=== PATIENT | female | born 1980 | race African-American/Black ===

== ENCOUNTER 2017-04-01 00:48 | Emergency (ER) | payer OTHER ==
[~2017-04-01] VITALS: Ht 170.2 cm; Wt 56.7 kg
[~2017-04-01 00:48] MED LIST: ALBUTEROL SULF8.5 GM INH; ALPRAZOLAM0.25 MG ORAL; AZITHROMYCIN250 MG ORAL; METRONIDAZOLE500 MG ORAL; NKM; PROMETHAZINE-D118 ML ORAL
[2017-04-01] MEDS ORDERED: RISPERDAL2 MG ORAL (00:57)
[2017-04-01] MEDS ORDERED: LORazepam Inj 2mg/ml 1ml IM ONE (01:15)
[2017-04-01] MEDS ORDERED: AMITRIPTYLINE25 MG ORAL (01:30)
--- NOTE | 2017-04-01 01:30 | Emergency Room Report ---
History of Present Illness General Chief Complaint: Headache Source: Patient, Family Member Present Illness HPI Is a 36-year-old female with a history of schizophrenia. She slept [facility]. Said that they put her on Zyprexa. She could not sleep tonight. She came in complaining of headache and feeling anxious. No suicidal thought thought. Denies any other complaint. Allergies: Coded Allergies: No Known Allergies (Unverified , 01/16/15) Patient History Past Medical History: see triage record, old chart reviewed, psych hx Past Surgical History: other Pertinent Family History: none Social History: Denies: smoking Last Menstrual Period: 03/28/17 Now: No Immunizations: other Reviewed Nursing Documentation: PMH: Agreed, PSxH: Agreed Nursing Documentation-PMH Past Medical History: No History, Except For Review of Systems Eye: Denies: blurred vision, eye pain ENT: Denies: ear pain, nose congestion, throat swelling Respiratory: Denies: cough, shortness of breath Cardiovascular: Denies: chest pain, palpitations Gastrointestinal: Denies: abdominal pain, diarrhea, nausea, vomiting Musculoskeletal: Denies: back pain, joint pain Skin: Denies: rash Neurological: Denies: headache, numbness Endocrine: Denies: increased thirst, increased urine Hematologic/Lymphatic: Denies: easy bruising All Other Systems: negative except mentioned in HPI Physical Exam Vital Signs Date Time Temp Pulse Resp B/P Pulse Ox O2 Delivery O2 Flow Rate FiO2 04/01/17 00:53 98.1 98 16 131/83 99 Room Air vitals normal Sp02 EP Interpretation: reviewed, normal General Appearance: well appearing, no apparent distress, alert Head: normocephalic, atraumatic Eyes: bilateral eye EOMI, bilateral eye PERRL ENT: hearing grossly normal, normal pharynx Neck: full range of motion, supple, no meningismus Respiratory: chest non-tender, lungs clear, normal breath sounds Cardiovascular #1: regular rate, rhythm, no murmur Gastrointestinal: normal bowel sounds, non tender, no mass, no organomegaly, no bruit, non-distended Musculoskeletal: back normal, gait/station normal, normal range of motion Psychiatric: anxious - Also with flat affect Skin: warm/dry Medical Decision Making Diagnostic Impression: Primary Impression: Headache Qualified Codes: R51 - Headache Additional Impression: Anxiety ER Course Patient presents with headache and anxiety. No suicidal thought homicidal thought. No psychosis. Better after Ativan. We'll discharge home. Last Vital Signs Date Time Temp Pulse Resp B/P Pulse Ox O2 Delivery O2 Flow Rate FiO2 04/01/17 00:53 98.1 98 16 131/83 99 Room Air Status: improved Disposition: HOME, SELF-CARE Condition: Stable Scripts Amitriptyline HCl (ELAVIL*) 25 Mg Tablet 25 MG ORAL BEDTIME, #30 TAB Prov: MAGALY JUAREZ M.D. 04/01/17 Patient Instructions: General Headache Without Cause Additional Instructions: Followup with your DrFlorencio in 7 days. Return if symptom worsen. MAGALY JUAREZ M.D. Apr 01, 2017 01:30
[2017-04-01 01:45] VITALS: BP 124/84
== END 2017-04-01 01:48 | disposition home or self-care (01) ==
LOC: EMR 01:27
DX: R51 Headache (principal); F41.9 Anxiety disorder, unspecified
CPT/HCPCS: 96372; 99283

== ENCOUNTER 2017-04-04 11:56 | Emergency (ER) | payer OTHER ==
[~2017-04-04] VITALS: Ht 170.2 cm; Wt 56.7 kg
[~2017-04-04 11:56] MED LIST changes: +AMITRIPTYLINE25 MG ORAL; +RISPERDAL2 MG ORAL
[2017-04-04 13:02] VITALS: BP 118/79
--- NOTE | 2017-04-04 13:02 | Emergency Room Report ---
History of Present Illness General Chief Complaint: Behavioral Complaint Source: EMS Present Illness HPI 36 -year-old female presents to the emergency department complaining of exacerbation of her psychiatric illness. Patient states that she has bipolar and is prescribed Risperdal 2 mg. Patient states that she is uncomfortable with her current situation at home and feels that she requires a gastric hospitalization. Patient states that she recently was discharged from [facility] the psychiatric facility and was there for 17 days. Patient denies PSA. pt .states that she is not suicidal, and does not have a plan but wants to be hospitalized. pt. denies HI and denies SI. Pt. states that she has been taking her medication. pt. states she regularly hears voices that give generalized commands but on occasion will be specific, pt. does not provide examples. Pt. reiterates regularly that she wants to be hospitalized and does not want to go home. Pt denies dysuria, hematuria, N/F/V/C. Denies CP, Palpitations, LOC, AMS , dizziness, Changes in Vision, Sensation, paresthesias, or a sudden severe headache. Allergies: Coded Allergies: No Known Allergies (Unverified , 01/16/15) Patient History Past Medical History: see triage record Past Surgical History: none Pertinent Family History: none Now: No Reviewed Nursing Documentation: PMH: Agreed, PSxH: Agreed Nursing Documentation-PM Past Medical History: No History, Except For History Of Psychiatric Problem: Yes - SCHIZOPHERENIA Review of Systems All Other Systems: negative except mentioned in HPI Physical Exam Vital Signs Date Time Temp Pulse Resp B/P Pulse Ox O2 Delivery O2 Flow Rate FiO2 04/04/17 11:47 98.2 96 18 118/79 99 Room Air Sp02 EP Interpretation: reviewed, normal General Appearance: no apparent distress, alert, GCS 15, non-toxic Head: normocephalic, atraumatic Eyes: bilateral eye PERRL, bilateral eye normal inspection ENT: hearing grossly normal, normal pharynx, no angioedema, normal voice Neck: full range of motion, supple/symm/no masses Respiratory: lungs clear, normal breath sounds, speaking full sentences Cardiovascular #1: regular rate, rhythm, no edema Gastrointestinal: normal bowel sounds, non tender, soft, no guarding, no rebound Rectal: deferred Genitourinary: normal inspection, no CVA tenderness Musculoskeletal: back normal, gait/station normal, normal range of motion, non- tender Neurologic: alert, oriented x3, responsive, motor strength/tone normal, sensory intact, speech normal Psychiatric: judgement/insight normal, memory normal, no suicidal/homicidal ideation, other - flat affect, yet overly impatient and frequently asks for updates. pt. denies suicidal ideation or plan she reports wanting to be hospitalized as she is "sick" Skin: normal color, no rash, warm/dry, well hydrated Lymphatic: no adenopathy Medical Decision Making PA Attestation Dr. lyon is my supervising Physician whom patient management has been discussed with. Diagnostic Impression: Primary Impression: Behavioral disorder ER Course 36 -year-old female presents to the emergency department complaining of exacerbation of her psychiatric illness. Patient states that she has bipolar and is prescribed Risperdal 2 mg. Patient states that she is uncomfortable with her current situation at home and feels that she requires a gastric hospitalization. Patient states that she recently was discharged from [facility] the psychiatric facility and was there for 17 days. Patient denies PSA. pt .states that she is not suicidal, and does not have a plan but wants to be hospitalized. pt. denies HI and denies SI. Pt. states that she has been taking her medication. pt. states she regularly hears voices that give generalized commands but on occasion will be specific, pt. does not provide examples. Pt. reiterates regularly that she wants to be hospitalized and does not want to go home. Pt denies dysuria, hematuria, N/F/V/C. Denies CP, Palpitations, LOC, AMS , dizziness, Changes in Vision, Sensation, paresthesias, or a sudden severe headache. Pt has flat affect, with moderate impatience. -brother was contacted by child and family services worker and came to the ED and states that his sister has been having infatuations with being hospitalized and everytime she is d/c for outpatient pt. calls 911 saying she needs to be hospitalized because she is very sick. he confirms that she has not had PSA's Ddx considered but are not limited to OD, SI/HI, psychosis, UTI, intoxication Vital signs: are WNL, pt. is afebrile H&PE are most consistent with behavioral/mental health issue ORDERS: -CBC, CMP: unremarkable other than mildly decreased potassium -UA: negative for infection see results attached. -UDS: negative -Salicylates and Acetaminophen - no acute intoxication. -Psychiatric Consult -Insurance Adviser consult: -- Soc. worker is attempting to find voluntary psych placement. ED INTERVENTIONS: - 1mg Risperdal PO -Tylenol PO for LÓPEZ - 20 Meq Kcl for low potassium Pt was cleared by Dr. Delaney for close outpatient treatment, or voluntary psych facility. at this time pt. is not danger to self or others to warrant a hold. DISPOSITION: Pt. eloped while attempts were made to find her voluntary psych placement. Labs Test 04/04/17 14:30 04/04/17 14:45 Urine Opiates Screen Negative (NEGATIVE) Urine Barbiturates Screen Negative (NEGATIVE) Phencyclidine (PCP) Screen Negative (NEGATIVE) Urine Amphetamines Screen Negative (NEGATIVE) Urine Benzodiazepines Screen Negative (NEGATIVE) Urine Cocaine Screen Negative (NEGATIVE) Urine Marijuana (THC) Screen Negative (NEGATIVE) White Blood Count 7.3 K/UL (4.8-10.8) Red Blood Count 3.88 M/UL (4.20-5.40) Hemoglobin 12.1 G/DL (12.0-16.0) Hematocrit 36.5 % (37.0-47.0) Mean Corpuscular Volume 94 FL (80-99) Mean Corpuscular Hemoglobin 31.2 PG (27.0-31.0) Mean Corpuscular Hemoglobin Concent 33.1 G/DL (32.0-36.0) Red Cell Distribution Width 12.0 % (11.6-14.8) Platelet Count 333 K/UL (150-450) Mean Platelet Volume 8.4 FL (6.5-10.1) Neutrophils (%) (Auto) 49.8 % (45.0-75.0) Lymphocytes (%) (Auto) 36.5 % (20.0-45.0) Monocytes (%) (Auto) 7.8 % (1.0-10.0) Eosinophils (%) (Auto) 4.9 % (0.0-3.0) Basophils (%) (Auto) 1.0 % (0.0-2.0) Sodium Level 138 mEQ/L (135-145) Potassium Level 3.3 mEQ/L (3.4-4.9) Chloride Level 100 mEQ/L (98-107) Carbon Dioxide Level 26 mEQ/L (20-30) Anion Gap 12 (5-15) Blood Urea Nitrogen 5 mg/dL (7-23) Creatinine 0.5 mg/dL (0.5-0.9) Estimat Glomerular Filtration Rate > 60 mL/min (>60) Glucose Level 91 mg/dL (74-106) Calcium Level 8.9 mg/dL (8.6-10.2) Total Bilirubin < 0.2 mg/dL (0.0-1.2) Aspartate Amino Transf (AST/SGOT) 11 U/L (5-40) Alanine Aminotransferase (ALT/SGPT) 8 U/L (3-33) Alkaline Phosphatase 61 U/L (35-104) Total Protein 7.2 g/dL (6.6-8.7) Albumin 3.7 g/dL (3.5-5.2) Globulin 3.5 g/dL Albumin/Globulin Ratio 1.0 (1.0-2.7) Salicylates Level < 1 mg/dL (10-30) Acetaminophen Level < 10 ug/mL (10-30) Serum Alcohol < 10 mg/dL Last Vital Signs Date Time Temp Pulse Resp B/P Pulse Ox O2 Delivery O2 Flow Rate FiO2 04/04/17 11:47 98.2 96 18 118/79 99 Room Air Disposition: ELOPED Condition: Stable Physician Consult: Dr. Delaney Referrals: NOT CHOSEN [facility]/,REFERRING (PCP) Chloé Clark Apr 04, 2017 13:02
[2017-04-04 15:13] LABS: EOSINOPHILS % (AUTO) 4.9 % (0.0-3.0); LYMPHOCYTES % (AUTO) 36.5 % (20.0-45.0); MEAN CORPUSCULAR HEMOGLOBIN 31.2 PG (27.0-31.0); MEAN CORPUSCULAR HGB CONC 33.1 G/DL (32.0-36.0); MEAN CORPUSCULAR VOLUME 94 FL (80-99); MEAN PLATELET VOLUME 8.4 FL (6.5-10.1); MONOCYTES % (AUTO) 7.8 % (1.0-10.0); NEUTROPHILS % (AUTO) 49.8 % (45.0-75.0); PLATELET COUNT 333 K/UL (150-450); RED BLOOD COUNT 3.88 M/UL (4.20-5.40); WHITE BLOOD COUNT 7.3 K/UL (4.8-10.8)
[2017-04-04 15:15] LABS: ACETAMINOPHEN < 10 ug/mL (10-30); ALANINE AMINOTRANSFERASE 8 U/L (3-33); ALCOHOL < 10 mg/dL; ANION GAP 12 (5-15); ASPARTATE AMINO TRANSFERASE 11 U/L (5-40); CALCIUM 8.9 mg/dL (8.6-10.2); CARBON DIOXIDE 26 mEQ/L (20-30); CHLORIDE 100 mEQ/L (98-107); CREATININE 0.5 mg/dL (0.5-0.9); GLOMERULAR FILTRATION RATE > 60 mL/min (>60); HEMOLYSIS 5; POTASSIUM 3.3 mEQ/L (3.4-4.9); SODIUM 138 mEQ/L (135-145); TOTAL PROTEIN 7.2 g/dL (6.6-8.7)
[2017-04-04 16:24] VITALS: BP 118/79
--- NOTE | 2017-04-05 00:24 | Consultation ---
History of Present Illness General Date patient seen: Apr 04, 2017 Chief Complaint: Behavioral Complaint Present Illness HPI 36 -year-old female presents to the emergency department complaining of exacerbation of her psychiatric illness. the pt was seen on 04/04. the was lying on the floor and was anxious stated that she does not want to back home to her mom and brother. the pt was bizarre and paranoid. the pt was a poor historian, initially she stated that she was suicidal but stated if we find her a place she would feel good. the pt was catastrophizing the situation she was in however she would not give details. the pt recently discharged from [facility] after 17days. she is on risperdal / Allergies: Coded Allergies: No Known Allergies (Unverified , 01/16/15) Medication History Scheduled Amitriptyline HCl (Elavil*), 25 MG ORAL BEDTIME Metronidazole* (Flagyl*), 500 MG ORAL BID No Known Medications* (NKM - No Known Medications*), 0 ., (Reported) Risperidone* (Risperdal*), 2 MG ORAL DAILY, (Reported) Patient History History Provided By: Patient, Medical Record, PMD Healthcare decision maker Resuscitation status Advanced Directive on File Past Medical/Surgical History Past Medical/Surgical History: (1) Upper respiratory infection (2) Upper respiratory infection (3) Acute alcoholic intoxication (4) Vaginal discharge (5) Anxiety Review of Systems Psychiatric: Reports: anxiety, depressed feelings, emotional problems, prior hx Physical Exam General Appearance: alert, moderate distress, thin Neurologic: alert, oriented x 3, responsive, depressed affect Last 24 Hour Vital Signs Date Time Temp Pulse Resp B/P Pulse Ox O2 Delivery O2 Flow Rate FiO2 04/04/17 16:24 98.2 95 18 118/79 99 Room Air 04/04/17 13:43 98.2 04/04/17 13:02 98.2 95 18 118/79 99 Room Air 04/04/17 11:47 98.2 96 18 118/79 99 Room Air Intake and Output 04/04/17 04/05/17 19:00 07:00 Intake Total 120 ml Balance 120 ml Intake Oral 120 ml # Voids 1 Laboratory Tests Test 04/04/17 14:30 04/04/17 14:45 Urine Opiates Screen Negative (NEGATIVE) Urine Barbiturates Screen Negative (NEGATIVE) Phencyclidine (PCP) Screen Negative (NEGATIVE) Urine Amphetamines Screen Negative (NEGATIVE) Urine Benzodiazepines Screen Negative (NEGATIVE) Urine Cocaine Screen Negative (NEGATIVE) Urine Marijuana (THC) Screen Negative (NEGATIVE) White Blood Count 7.3 K/UL (4.8-10.8) Red Blood Count 3.88 M/UL (4.20-5.40) L Hemoglobin 12.1 G/DL (12.0-16.0) Hematocrit 36.5 % (37.0-47.0) L Mean Corpuscular Volume 94 FL (80-99) Mean Corpuscular Hemoglobin 31.2 PG (27.0-31.0) H Mean Corpuscular Hemoglobin Concent 33.1 G/DL (32.0-36.0) Red Cell Distribution Width 12.0 % (11.6-14.8) Platelet Count 333 K/UL (150-450) Mean Platelet Volume 8.4 FL (6.5-10.1) Neutrophils (%) (Auto) 49.8 % (45.0-75.0) Lymphocytes (%) (Auto) 36.5 % (20.0-45.0) Monocytes (%) (Auto) 7.8 % (1.0-10.0) Eosinophils (%) (Auto) 4.9 % (0.0-3.0) H Basophils (%) (Auto) 1.0 % (0.0-2.0) Sodium Level 138 mEQ/L (135-145) Potassium Level 3.3 mEQ/L (3.4-4.9) L Chloride Level 100 mEQ/L (98-107) Carbon Dioxide Level 26 mEQ/L (20-30) Anion Gap 12 (5-15) Blood Urea Nitrogen 5 mg/dL (7-23) L Creatinine 0.5 mg/dL (0.5-0.9) Estimat Glomerular Filtration Rate > 60 mL/min (>60) Glucose Level 91 mg/dL (74-106) Calcium Level 8.9 mg/dL (8.6-10.2) Total Bilirubin < 0.2 mg/dL (0.0-1.2) Aspartate Amino Transf (AST/SGOT) 11 U/L (5-40) Alanine Aminotransferase (ALT/SGPT) 8 U/L (3-33) Alkaline Phosphatase 61 U/L (35-104) Total Protein 7.2 g/dL (6.6-8.7) Albumin 3.7 g/dL (3.5-5.2) Globulin 3.5 g/dL Albumin/Globulin Ratio 1.0 (1.0-2.7) Salicylates Level < 1 mg/dL (10-30) L Acetaminophen Level < 10 ug/mL (10-30) L Serum Alcohol < 10 mg/dL Height (Feet): 5 Height (Inches): 7.00 Weight (Pounds): 125 Assessment/Plan Status: stable Assessment/Plan bipolar d/o r/o schizophrenia -risperdal 2mg -sw consult to call the brother and gather info -no [id number] at this time. pt agreeable to Nevaeh Wright M.D. Apr 05, 2017 00:24
== END 2017-04-04 16:26 | disposition left against medical advice (07) ==
LOC: EDBD 11:56 → EMR 12:57
DX: F91.9 Conduct disorder, unspecified (principal); F20.9 Schizophrenia, unspecified; F31.9 Bipolar disorder, unspecified
CPT/HCPCS: 36415; 80053; 80300; 80329; 85025; 99283

== ENCOUNTER → 2017-04-22 | Emergency (ER) | payer OTHER ==
[~2017-04-22] VITALS: Ht 167.6 cm; Wt 56.7 kg
[~2017-04-22] MED LIST changes: +Metoclopramide 10mg/2ml Inj IVP ONE
[2017-04-22 17:48] LABS: BASOPHILS % (AUTO) 1.1 % (0.0-2.0); EOSINOPHILS % (AUTO) 5.2 % (0.0-3.0); LYMPHOCYTES % (AUTO) 34.7 % (20.0-45.0); MEAN CORPUSCULAR HEMOGLOBIN 32.2 PG (27.0-31.0); MEAN CORPUSCULAR VOLUME 92 FL (80-99); MEAN PLATELET VOLUME 7.5 FL (6.5-10.1); MONOCYTES % (AUTO) 5.3 % (1.0-10.0); NEUTROPHILS % (AUTO) 53.8 % (45.0-75.0); PLATELET COUNT 309 K/UL (150-450); RED BLOOD COUNT 3.98 M/UL (4.20-5.40); RED CELL DISTRIBUTION WIDTH 11.7 % (11.6-14.8); WHITE BLOOD COUNT 7.1 K/UL (4.8-10.8)
[2017-04-22 18:03] LABS: ALANINE AMINOTRANSFERASE 10 U/L (3-33); ALBUMIN/GLOBULIN RATIO 1.1 (1.0-2.7); ANION GAP 13 (5-15); ASPARTATE AMINO TRANSFERASE 14 U/L (5-40); CALCIUM 9.5 mg/dL (8.6-10.2); CARBON DIOXIDE 26 mEQ/L (20-30); CHLORIDE 101 mEQ/L (98-107); CREATININE 0.6 mg/dL (0.5-0.9); GLOMERULAR FILTRATION RATE > 60 mL/min (>60); HEMOLYSIS 6; LIPASE 24 U/L (< 60); POTASSIUM 3.7 mEQ/L (3.4-4.9); SODIUM 140 mEQ/L (135-145); TOTAL PROTEIN 7.9 g/dL (6.6-8.7)
[2017-04-22 18:15] VITALS: BP 117/64
--- NOTE | 2017-04-22 19:47 | Emergency Room Report ---
History of Present Illness General Chief Complaint: Alcohol Intoxication Source: Patient Present Illness HPI The patient is a 36-year-old female with a history of schizophrenia presenting for nausea after alcohol consumption. She states that she usually takes Ativan for schizophrenia but has run out of medication. She states that she drinks 2 shots of alcohol earlier today. She denies any other symptoms including fever, chills, vomiting, chest pain, shortness of breath, dizziness, abdominal pain. She denies any thoughts of self harm or suicidal ideation Allergies: Coded Allergies: No Known Allergies (Unverified , 01/16/15) Patient History Past Medical History: see triage record Pertinent Family History: none Reviewed Nursing Documentation: PMH: Agreed, PSxH: Agreed Nursing Documentation-PMH Past Medical History: No History, Except For History Of Psychiatric Problem: Yes - SCHIZOPHERINIA Review of Systems All Other Systems: negative except mentioned in HPI Physical Exam Vital Signs Date Time Temp Pulse Resp B/P Pulse Ox O2 Delivery O2 Flow Rate FiO2 04/22/17 16:20 98.6 122 20 117/64 96 Room Air Sp02 EP Interpretation: reviewed, normal General Appearance: no apparent distress, alert, GCS 15, non-toxic Head: normocephalic, atraumatic Eyes: bilateral eye PERRL, bilateral eye normal inspection ENT: hearing grossly normal, normal pharynx, no angioedema, normal voice Neck: full range of motion, supple/symm/no masses Respiratory: chest non-tender, lungs clear, normal breath sounds, speaking full sentences Cardiovascular #1: regular rate, rhythm, no edema Musculoskeletal: back normal, gait/station normal, normal range of motion, non- tender Neurologic: alert, oriented x3, responsive, motor strength/tone normal, sensory intact, speech normal Psychiatric: judgement/insight normal, memory normal, mood/affect normal, no suicidal/homicidal ideation Skin: normal color, no rash, warm/dry, well hydrated Lymphatic: no adenopathy Medical Decision Making PA Attestation Dr. Kapadia is my supervising physician. Patient management was discussed with my supervising physician Diagnostic Impression: Primary Impression: Anxiety ER Course The patient is a 36 old female with a history of schizophrenia presenting for nausea after alcohol consumption Differential diagnoses considered but not limited to: Psychosis, alcohol intoxication, drug use, , among others Physical exam: No apparent distress HEENT exam is unremarkable Abdomen is soft and nontender Skin is warm and dry. Normal turgor All blood work is unremarkable Serum alcohol is essentially negative Urine negative The patient was given IV fluids and Reglan and is feeling better Upon reevaluation, the patient has eloped. Last Vital Signs Date Time Temp Pulse Resp B/P Pulse Ox O2 Delivery O2 Flow Rate FiO2 04/22/17 18:15 122 20 117/64 96 Room Air 04/22/17 16:20 98.6 Status: improved Disposition: ELOPED Condition: Unknown Referrals: [facility],REFERRING (PCP) GUS LAYTON Apr 22, 2017 19:47
== END | disposition left against medical advice (07) ==
LOC: EMR 16:30
DX: F41.9 Anxiety disorder, unspecified (principal); F20.9 Schizophrenia, unspecified
CPT/HCPCS: 36415; 80053; 80300; 80329; 81025; 83690; 85025; 96374; 96375; 99284; J2765

== ENCOUNTER 2017-04-30 08:19 | Emergency (ER) | payer OTHER ==
[~2017-04-30] VITALS: Ht 165.1 cm; Wt 60.3 kg
[~2017-04-30 08:19] MED LIST changes: -Metoclopramide 10mg/2ml Inj IVP ONE
[2017-04-30 08:39] VITALS: BP 102/72
--- NOTE | 2017-04-30 08:57 | Emergency Room Report ---
History of Present Illness General Chief Complaint: Female Urogenital Problems Source: Patient Present Illness HPI 36-year-old female no significant past medical history presenting with 3 days of dysuria. Patient complains of burning with urination, frequency. States that she has whitish vaginal discharge that is normal for her. Denies fever or chills abdominal pain nausea vomiting diarrhea hematuria. Patient denies being sexually active for a long time. Patient has never had any sexually transmitted diseases. Allergies: Coded Allergies: No Known Allergies (Unverified , 01/16/15) Patient History Past Medical History: none Past Surgical History: none Pertinent Family History: none Last Menstrual Period: 04/16/17 Now: No Nursing Documentation-[facility] Past Medical History: No Stated History Review of Systems Genitourinary: Reports: discharge, dysuria All Other Systems: negative except mentioned in HPI Physical Exam Vital Signs Date Time Temp Pulse Resp B/P Pulse Ox O2 Delivery O2 Flow Rate FiO2 04/30/17 08:21 97.9 101 15 102/72 99 Room Air Sp02 EP Interpretation: reviewed, normal General Appearance: normal inspection, well appearing, no apparent distress, alert, GCS 15, non-toxic Head: normocephalic, atraumatic Eyes: bilateral eye EOMI, bilateral eye PERRL, bilateral eye normal inspection ENT: normal ENT inspection, normal pharynx, normal voice, moist mucus membranes Neck: normal inspection, full range of motion, supple Respiratory: normal inspection, lungs clear, normal breath sounds, no respiratory distress, no retraction, no wheezing, speaking full sentences, chest symmetrical Cardiovascular #1: normal inspection, regular rate, rhythm, no edema, normal capillary refill Gastrointestinal: normal inspection, non tender, soft, non-distended, no guarding Genitourinary: no CVA tenderness Musculoskeletal: normal inspection, back normal, normal range of motion, non- tender Neurologic: normal inspection, alert, oriented x3, responsive, motor strength/ tone normal, sensory intact, normal gait, speech normal Psychiatric: normal inspection, judgement/insight normal, memory normal Skin: normal inspection, normal color, no rash, warm/dry, well hydrated, normal turgor Medical Decision Making Diagnostic Impression: Primary Impression: UTI (urinary tract infection) ER Course 36 yo M F with dysuria DDX: uti / / pyelo / STDs patient denies being sexually active / hx of STDS Plan: ua, ucx, ucg ER course: ua - POSITIVE Patient has remained stable during ED stay. Disposition: The patient is to be discharged to home with cipro. Patient is instructed to followup with her primary care doctor within 5 days. Strict return precautions discussed the patient's such as fever chills abdominal pain nausea vomiting diarrhea. Last Vital Signs Date Time Temp Pulse Resp B/P Pulse Ox O2 Delivery O2 Flow Rate FiO2 04/30/17 08:39 97.9 15 102/72 99 Room Air 04/30/17 08:21 101 Disposition: HOME, SELF-CARE Condition: Improved Scripts Nitrofurantoin Monohyd/M-Cryst* (MACROBID 100 MG*) 100 Mg Capsule 100 MG ORAL EVERY 12 HOURS for 5 Days, #10 CAP Prov: Uday Cross M.D. 04/30/17 Patient Instructions: Urinary Tract Infection Additional Instructions: Please follow up with your primary care doctor within 3 days. Please return to the emergency room immediately if you are experiencing severe or worsening pain, high fevers or chills, severe abdominal pain, nausea or vomiting. Uday Cross M.D. Apr 30, 2017 08:57
[2017-04-30 09:13] LABS: APPEARANCE,URINE SLIGHTLY CLOUDY; KETONES,URINE NEGATIVE (NEGATIVE); LEUKOCYTE ESTERASE ,URINE 2+ (NEGATIVE); NITRITE,URINE NEGATIVE (NEGATIVE); PH,URINE 6 (4.5-8.0); PROTEIN,URINE NEGATIVE (NEGATIVE); UROBILINOGEN,URINE NORMAL MG/DL (0.0-1.0)
[2017-04-30 09:29] LABS: BACTERIA,URINE OCCASIONAL /HPF; RBC,URINE 0-2 /HPF (0 - 2); SQUAMOUS EPITHELIAL CELL,UR OCCASIONAL /LPF (NONE/OCC)
[2017-04-30] MEDS ORDERED: NITROFURANTOIN100 M2 ORAL (09:32)
[2017-04-30 09:35] VITALS: BP 100/69
[2017-04-30 09:37] VITALS: BP 100/69
== END 2017-04-30 09:37 | disposition home or self-care (01) ==
LOC: EMR 08:50
DX: N39.0 Urinary tract infection, site not specified (principal)
CPT/HCPCS: 81001; 81025; 99283